=== PATIENT | male | born 1990 | race Hispanic/Latino ===

== ENCOUNTER 2019-10-22 | Emergency (ER) | payer SELFPAY ==
[~2019-10-22] MED LIST: ADDERALL10 MG OR; DEPAKOTE500 MG OR; KEFLEX500 MG PO; NAPROSYN500 MG OR
[2019-10-22] MEDS ORDERED: ATIVAN1 MG PO (21:17)
[2019-10-22] MEDS ORDERED: ADDERALL30 MG PO (21:17)
[2019-10-22] MEDS ORDERED: BACTRIM DS1 TAB PO (21:43)
== END 2019-10-22 21:48 | disposition home or self-care (01) | DRG 607 ==
DX: S30.860A Insect bite (nonvenomous) of lower back and pelvis, initial encounter (principal); N49.8 Inflammatory disorders of other specified male genital organs; F17.210 Nicotine dependence, cigarettes, uncomplicated; W57.XXXA Bitten or stung by nonvenomous insect and other nonvenomous arthropods, initial encounter